=== PATIENT | male | born 1950 | race Caucasian/White ===

== ENCOUNTER → 2022-01-11 | Outpatient (CLI) | payer OTHER ==
--- NOTE | 2022-01-11 14:30 | KCIC ---
EXAM: Cervical spine MRI without contrast. HISTORY: Radiculopathy. TECHNIQUE: Multiplanar, multisequence magnetic resonance imaging of the cervical spine was performed without contrast. COMPARISON: None. FINDINGS: There is minimal multilevel degenerative listhesis. There is degenerative endplate remodeli ng with disc space narrowing and osteophytosis at the majority of the cervical levels. There is no fr acture or suspicious osseous lesion. There is deformation of the spinal cord at multiple levels due t o central canal stenosis. There is suggestion of spinal cord signal abnormality on sagittal images. H owever, this is not confirmed on axial images and is likely artifactual. There is a prominent central canal at T1 and T2, not clearly within limits to suggest syringohydromyelia. At C2-C3, there is a left posterior lateral endplate osteophyte complex. There is no stenosis. At C3-C4, there is a disc bulge and endplate osteophytosis. There is mild left facet arthropathy. The re is uncovertebral arthropathy. There is moderate left foraminal stenosis. There is mild central can al stenosis. At C4-C5, there is a disc bulge and endplate osteophytosis. There is mild right and moderate to sever e left facet arthropathy. There is uncovertebral arthropathy. There is mild right and severe left for aminal stenosis. There is mild central canal stenosis. At C5-C6, there is a disc bulge and endplate osteophytosis. There is mild right and moderate to sever e left facet arthropathy. There is uncovertebral arthropathy. There is moderate right and severe left foraminal stenosis. There is mild to moderate central canal stenosis measuring 8.0 mm in anterior po sterior dimension. At C6-C7, there is a disc bulge and endplate osteophytosis. There is mild bilateral facet arthropathy . There is uncovertebral arthropathy. There is moderate to severe right and severe left foraminal marsha nosis. IMPRESSION: 1. Multilevel degenerative change involving the cervical spine, described in detail above. This resul ts in significant foraminal stenosis at the aforementioned levels. There is also mild central canal s tenosis at C3-C4 and mild to moderate central canal stenosis at C5-C6. 2. Prominent central canal within the cervical spinal cord at the upper thoracic levels, not clearly within limits to suggest syringohydromyelia. No convincing spinal cord lesion is seen. Electronically signed by: Liliam Plascencia MD (01/11/2022 2:27 PM) [id number]
== END ==
LOC: KCIC MRI 12:51
DX: M47.812 Spondylosis without myelopathy or radiculopathy, cervical region (principal); M50.31 Other cervical disc degeneration, high cervical region; M25.78 Osteophyte, vertebrae; M48.8X2 Other specified spondylopathies, cervical region; M48.02 Spinal stenosis, cervical region; M43.12 Spondylolisthesis, cervical region
CPT/HCPCS: 72141